=== PATIENT | male | born 1990 | race Caucasian/White ===

== ENCOUNTER 2019-02-04 12:00 | Outpatient (CLI) | payer MEDICARE, MEDICAID ==
[2019-02-04] MEDS ORDERED: GADOBUTROL 7.5 MMOL/7.5 ML VIAL ONE (13:32)
[2019-02-04] MEDS ORDERED: GADOBUTROL 7.5 MMOL/7.5 ML VIAL IVP ONE (13:34)
--- NOTE | 2019-02-04 16:50 | MRI Report ---
Reason: NEUROFIBROMATUSIS,L AMYGIDAHERNAN, LOW GIADE Procedure Date: 02/04/2019 Accession Number: [id number] / [id number] Procedure: MRI - Brain W/WO CPT Code: FULL RESULT: EXAM: MRI BRAIN WITHOUT AND WITH CONTRAST EXAM DATE: 02/04/2019 01:40 PM. 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 Evaluate for interval change. COMPARISON: MR brain 01/10/2016, 03/11/2012. TECHNIQUE: Multiplanar, multisequence T1-weighted and fluid-sensitive MR sequences of the brain were performed. Sequences optimized for routine evaluation. Other: None. IV Contrast: 6.5 cc Gadavist. FINDINGS: Brain Volume: Normal for age. Parenchyma: There is masslike FLAIR signal hyperintensity seen involving the right and left amygdala with extension into the hippocampi and parahippocampal tails that appears increased in extent from MR brain 01/10/2016. On the right the lesion measures approximately 14 x 15 x 28 mm (CC by TR by AP). On the left the lesion appears to measure 16 x 24 x 25 mm (CC by TR by AP). There is no evidence of enhancement. No susceptibility artifact or definite restricted diffusion. There is an irregular area of FLAIR signal hyperintensity involving the cortical mantle of the medial right frontal lobe (series 701, image 18), similar to prior study. Better evaluated on prior MR brain 01/10/2016 is an area of FLAIR signal hyperintensity within the medial left frontal lobe (series 701, image 19). No areas of restricted diffusion seen to suggest acute infarct. No areas of abnormal hemosiderin deposition. No abnormal postcontrast enhancement. Ventricles/Cisterns: No hydrocephalus. There is an area of DWI signal hyperintensity seen involving the left cerebellopontine angle (series 505, image 56) with no definite mass or masslike enhancement seen on other sequences. No other definite abnormal extra-axial fluid collection/mass seen. Orbits: Symmetric and unremarkable. Sella Turcica: The pituitary gland, cavernous sinuses, suprasellar cistern and optic chiasm are unremarkable. IAC: Symmetric and unremarkable. Vasculature: Normal signal flow void is seen in the major arterial structures at the skull base. The dural sinuses are patent and enhance normally. Sinuses: No acute sinus disease. Bones: No focal pathologic appearing marrow signal changes. Other: Again demonstrated is enhancement involving the soft tissues overlying the right TMJ and right mastoid tip. IMPRESSION: 1. Compared to MR brain 01/10/2016, there has been interval increase in masslike area of FLAIR abnormality involving the bilateral amygdala with extension into the hippocampi and parahippocampal tails, as detailed above. There is no evidence of enhancement or restricted diffusion. Findings are concerning for potential progressive low-grade glioma. Continued surveillance is suggested. 2. Compared to MR brain 01/10/2016, there continue to be areas of nonenhancing focal FLAIR abnormality involving the medial right and left frontal lobes. Findings may represent neurofibromas, but additional small gliomas cannot be entirely excluded. Continued surveillance is suggested. 3. No acute infarct or acute intracranial hemorrhage seen. No abnormal intracranial enhancement. 4. There is an area of DWI signal hyperintensity seen involving the left cerebellopontine angle (series 505, image 56) with no definite mass or masslike enhancement seen on other sequences. Although finding may be artifactual, possibility of underlying schwannoma cannot be excluded. Clinical correlation with patient's symptomatology and MR brain and IACs with and without contrast can be considered. 5. 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 [facility]
== END 2019-02-04 12:01 | disposition home or self-care (01) ==
LOC: DI 12:00
PROVIDERS: ATTEND Internal Medicine
DX: Q85.01 Neurofibromatosis, type 1 (principal); G93.89 Other specified disorders of brain
CPT/HCPCS: 70553; A9585